=== PATIENT | male | born 1935 | race Asian ===

== ENCOUNTER 2018-08-19 19:03 | Inpatient (IN) | payer MEDICARE, MEDICAID ==
[~2018-08-19] VITALS: Ht 175.3 cm; Wt 62.6 kg
--- NOTE | 2018-08-19 19:12 | NUR ---
TIMOTEO, FROM [facility], SOB, 02 SAT 75 ON RA, 100% ON 15LPM VIA NON REBREATHING, TO ER BED 4, HOOKED TO MONITOR, CHANGED TO GOWN, AWAITING MD MOORE
--- NOTE | 2018-08-19 19:16 | NUR ---
DR STRINGER AT BEDSIDE
--- NOTE | 2018-08-19 19:24 | NUR ---
ONGOING BREATHING TREATMENT
[2018-08-19] MEDS ORDERED: IPRATROPIUM NEB FS 0.5 MG/2.5 ML AMPUL.NEB ONE (19:25)
[2018-08-19] MEDS ORDERED: ALBUTEROL FS 2.5 MG/3 ML VIAL.NEB ONE ×2 (19:25→20:50)
[2018-08-19] MEDS ORDERED: methylPREDNISolone SOD SUCC 125 MG/2ML VIAL IV ONE (19:30)
[2018-08-19] MEDS ORDERED: ALBUTEROL FS 2.5 MG/3 ML VIAL.NEB NEB ONE (19:30)
[2018-08-19] MEDS ORDERED: IPRATROPIUM NEB FS 0.5 MG/2.5 ML AMPUL.NEB NEB ONE (19:30)
[2018-08-19 19:37] LABS: BASOPHILS % (AUTO) 0.5 % (0.0-2.0); EOSINOPHILS % (AUTO) 6.2 % (0.0-6.0); HEMATOCRIT 39 % (39-51); HEMOGLOBIN 13.1 g/dL (13.5-17.5); LYMPHOCYTES # (AUTO) 0.8 /CMM (0.8-4.8); LYMPHOCYTES % (AUTO) 8.9 % (20.0-44.0); MEAN CORPUSCULAR HGB CONC 34 g/dl (31.0-36.0); MEAN CORPUSCULAR VOLUME 98 fL (80-96); MONOCYTES # (AUTO) 0.6 /CMM (0.1-1.30); MONOCYTES % (AUTO) 7.1 % (2.0-12.0); NEUTROPHILS # (AUTO) 6.7 /CMM (1.8-8.9); NEUTROPHILS % (AUTO) 77.3 % (43.0-81.0); PLATELET COUNT (AUTO) 192 /CMM (150-450); RED BLOOD CELL COUNT(AUTO) 3.98 MIL/uL (4.5-6.0); WHITE BLOOD COUNT (AUTO) 8.7 K/uL (4.3-11.0)
[2018-08-19 19:44] LABS: CALCIUM, SERUM 8.4 mg/dL (8.5-10.1); CARBON DIOXIDE 27 mmol/L (21-32); CHLORIDE 115 mmol/L (98-107); CREATININE 1.2 mg/dL (0.6-1.3); GLUCOSE 127 mg/dL (74-106); POTASSIUM 3.6 mmol/L (3.5-5.1); SODIUM SERUM 146 mmol/L (136-145); UREA NITROGEN, BLOOD 22 mg/dL (7-18)
[2018-08-19] MEDS ORDERED: methylPREDNISolone SOD SUCC 125 MG/2ML VIAL ONE (19:55)
[2018-08-19 19:57] LABS: ALANINE AMINOTRANSFERASE 23 U/L (12-78); ALBUMIN 2.1 g/dL (3.4-5.0); ALKALINE PHOSPHATASE 71 U/L (46-116); ASPARTATE AMINOTRANSFERASE 25 U/L (15-37); B-TYPE NATRIURETIC PEPTIDE 431 PG/ML (0-125); BILIRUBIN,DIRECT 0.2 mg/dL (0.0-0.2); BILIRUBIN,TOTAL 0.7 mg/dL (0.2-1.0); TOTAL PROTEIN, SERUM 6.7 g/dL (6.4-8.2)
[2018-08-19] MEDS ORDERED: ALBUTEROL FS 2.5 MG/0.5 ML VIAL.NEB NEB ONE (20:30)
[2018-08-19 20:45] LABS: ABG BASE EXCESS -0.8 mmol/L; ABG OXYGEN SATURATION 87.7 % (92.0-98.5); ABG PCO2 36.9 mmHg (35.0-45.0); ABG PH 7.419 (7.350-7.450); ABG PO2 58.4 mmHg (75.0-100.0); AaDO2 97.7 mmHg; COHb 0.8 % (0.5-1.5); MetHb 0.5 % (0.0-1.5); O2Hb 86.6 % (94.0-97.0); SITE, ABG Right Radial; VENT MODE, BG 2L N/C
--- NOTE | 2018-08-19 20:50 | NUR ---
ONGOING BREATHING TREATMENT
--- NOTE | 2018-08-19 20:50 | NUR ---
FLU SWAB COLLECTED AND SENT TO LAB
[2018-08-19] MEDS ORDERED: PIPERACILLIN /TAZOBACTAM 3.375 G in IV D5W 50 ML IV ONE (21:00)
[2018-08-19] MEDS ORDERED: VANCOMYCIN 1 GM in IV D5W 250 ML IV ONE (21:00)
[2018-08-19] MEDS ORDERED: PIPERACILLIN /TAZOBACTAM 3.375 G VIAL IV ONE (21:13)
[2018-08-19] MEDS ORDERED: VANCOMYCIN 1 GM VIAL ONE (21:13)
--- NOTE | 2018-08-19 21:40 | NUR ---
PT IN BED COMFORTABLE, HOOKED TO VETERINARY RECEPTIONIST, TRYING TO REMOVE NC, PLACED NC BACK AT 5LPM, WILL CONTINUE TO MONITOR.
[2018-08-19] MEDS ORDERED: MAG HYDROX/AL HYDROX/SIMETH 30 ML UDC PO PRN (22:00)
[2018-08-19] MEDS ORDERED: ONDANSETRON HCL/PF 4 MG/2 ML VIAL IVP PRN (22:00)
[2018-08-19] MEDS ORDERED: ZOLPIDEM TARTRATE 5 MG TABLET PO PRN (22:00)
[2018-08-19] MEDS ORDERED: ACETAMINOPHEN 325 MG TABLET PO PRN (22:00)
[2018-08-19] MEDS ORDERED: Z GUARD REMEDY 2 OZ OINT TP PRN (22:00)
[2018-08-19] MEDS ORDERED: HYDROCODONE/APAP 5/325MG 1 EACH TABLET PO PRN (22:00)
[2018-08-19] MEDS ORDERED: MAGNESIUM HYDROXIDE 30 ML UDC PO PRN (22:00)
--- NOTE | 2018-08-19 22:04 | NUR ---
PT IN BED SLEEPING, EASILY AROUSED BY VOICE, CONTINOUS OXYGEN VIA NC AT 5LPM, ONGOING IV ATB VANCOMYCIN 1GM, TOLERATING WELL.
--- NOTE | 2018-08-19 22:24 | NUR ---
REPORT GIVEN TO ABEL VAZQUEZ OF TELE UNIT
--- NOTE | 2018-08-19 22:45 | NUR ---
TELE/RN NOTES NEW ADMITTED PATIENT IS A 83 Y.O MAORI MALE FROM [facility], ARRIVED ON A GURNEY /FROM ER. PATIENT CAN OPEN EYES BUT NON VERBAL, COOPERATIVE TO CARE, REQUIRE OXYGEN VIA NC AT 5L WITH DX OF PNA. PATIENT WITH MULTIPLE SKIN ISSUES, PRESSURE SACRAL REDNESS,ON TELE MONITORING WITH NSR. ANDONIAN WITH ORDERS, TO F/U CONSULT FOR ST SWALLOWING, WOUND CONSULT, PATIETN ON BREATHING TREATMENT DUE TO CONGESTION, UNABLE TO CLEAR SECRETIONS, ARRIVED WITH KEATING, LEFT IV SITE ON HAND GAUGE 20 ABLE TO FLUSH, TO KEEP NPO FOR NOW UNTIL ST EVAL. CONFUSED, APHASIC, WITH HX OF DEMENTIA. MADE AWARE THAT MARLON HAD NGT PRIOR TO HOSPITAL TRANSFER AT [facility], WILL F/U WITH CONSULT. BED LOCKED, REOSITIONED. KEPT SKIN INTACT . NO BELONGINGS.
[2018-08-19 22:47] VITALS: BP 141/80
[2018-08-19 22:50] VITALS: BP 141/80
[2018-08-20] VITALS (7 sets, daily range): BP systolic 134–164; BP diastolic 60–86
[2018-08-20] MEDS ORDERED: PIPERACILLIN /TAZOBACTAM 3.375 G in IV D5W 50 ML IV SCH ×2
[2018-08-20] MEDS: ALBUTEROL FS 2.5 MG/3 ML VIAL.NEB NEB SCH ×8 (02:53→22:50)
[2018-08-20] MEDS: IPRATROPIUM NEB FS 0.5 MG/2.5 ML AMPUL.NEB NEB SCH ×8 (02:53→22:49)
[2018-08-20] MEDS ORDERED: PIPERACILLIN /TAZOBACTAM 3.375 G in IV D5W 50 ML IV ONE (03:00)
[2018-08-20] MEDS ORDERED: PIPERACILLIN /TAZOBACTAM 3.375 G VIAL IV ONE (03:03)
[2018-08-20] MEDS ORDERED: CAPT1TAB5 NG (06:04)
[2018-08-20] MEDS ORDERED: HYDR-4076 NG (06:04)
[2018-08-20] MEDS ORDERED: SIME180C47 NG (06:04)
[2018-08-20] MEDS ORDERED: LEVA0.6320 NEB (06:04)
[2018-08-20] MEDS ORDERED: LORA10TA7 NG (06:04)
[2018-08-20] MEDS ORDERED: ONDA4TAB10 NG (06:04)
[2018-08-20] MEDS ORDERED: TAMS-12 NG (06:04)
[2018-08-20] MEDS ORDERED: LISI-603 NG (06:04)
[2018-08-20] MEDS ORDERED: ALLO100T NG (06:04)
[2018-08-20] MEDS ORDERED: FOLI1TAB16 NG (06:04)
[2018-08-20] MEDS ORDERED: DONE5TAB34 NG (06:04)
[2018-08-20] MEDS ORDERED: AMLO2.5T4 NG (06:04)
[2018-08-20] MEDS ORDERED: FAMO-131 NG (06:04)
[2018-08-20] MEDS ORDERED: METO25TA6 (06:04)
[2018-08-20] MEDS ORDERED: ATOR20TA NG (06:04)
[2018-08-20] MEDS ORDERED: AMYL1CAP58 NG (06:04)
[2018-08-20] MEDS ORDERED: LACT-96 NG (06:04)
[2018-08-20] MEDS ORDERED: ACET325C5 NG (06:04)
[2018-08-20] MEDS ORDERED: MULT1TAB14 NG (06:04)
[2018-08-20] MEDS ORDERED: MAGN400O21 PO (06:04)
[2018-08-20] MEDS ORDERED: ATOR40TA PO (06:04)
[2018-08-20] MEDS ORDERED: CLOP100P MC (06:04)
[2018-08-20] MEDS ORDERED: DOCU100C36 NG (06:04)
[2018-08-20] MEDS ORDERED: CLON0.1T NG (06:04)
[2018-08-20] MEDS ORDERED: PANT40TA4 NG (06:04)
--- NOTE | 2018-08-20 06:52 | NUR ---
321-1 TELE/RN NOTES PATIENT NON VERBAL ,RESPIRATIONS REQUIRE OXYGENATION VIA NC AT 5L, RECEIVED WITH KEATING, NEUROENIC BLADDER DX PER SNF, KEPT SKIN WARM TO TOUCH, REPOSITION FOR COMFORT. BED LOCKED. WILL MONITOR.
[2018-08-20 07:07] LABS: BASOPHILS % (AUTO) 0.2 % (0.0-2.0); HEMATOCRIT 40 % (39-51); HEMOGLOBIN 13.2 g/dL (13.5-17.5); LYMPHOCYTES # (AUTO) 0.3 /CMM (0.8-4.8); LYMPHOCYTES % (AUTO) 6.6 % (20.0-44.0); MEAN CORPUSCULAR HGB CONC 33 g/dl (31.0-36.0); MEAN CORPUSCULAR VOLUME 98 fL (80-96); MONOCYTES # (AUTO) 0.1 /CMM (0.1-1.30); MONOCYTES % (AUTO) 1.6 % (2.0-12.0); NEUTROPHILS # (AUTO) 4.4 /CMM (1.8-8.9); NEUTROPHILS % (AUTO) 91.6 % (43.0-81.0); PLATELET COUNT (AUTO) 178 /CMM (150-450); RED BLOOD CELL COUNT(AUTO) 4.08 MIL/uL (4.5-6.0); WHITE BLOOD COUNT (AUTO) 4.8 K/uL (4.3-11.0)
[2018-08-20 07:22] LABS: CALCIUM, SERUM 8.5 mg/dL (8.5-10.1); CARBON DIOXIDE 25 mmol/L (21-32); CHLORIDE 115 mmol/L (98-107); CREATININE 1.2 mg/dL (0.6-1.3); GLUCOSE 192 mg/dL (74-106); MAGNESIUM 2.4 mg/dL (1.8-2.4); PHOSPHORUS 4.2 mg/dL (2.5-4.9); POTASSIUM 3.7 mmol/L (3.5-5.1); SODIUM SERUM 152 mmol/L (136-145); UREA NITROGEN, BLOOD 24 mg/dL (7-18)
[2018-08-20 07:28] LABS: CHOLESTEROL 123 mg/dL (<200); HDL CHOLESTEROL 23 mg/dL (40-60); LDL 90 mg/dL (0-99); TRIGLYCERIDES 116 mg/dL (30-150)
[2018-08-20] MEDS ORDERED: FEE PK DOSING 1 MIN EA MC ONE (08:04)
--- NOTE | 2018-08-20 08:04 | NUR ---
TELE/RN OPENING NOTE PATIENT IN BED IN STABLE CONDITION. A/O X 1, GREEK SPEAKING AND UNDERSTANDING. NO SIGNS OF ACUTE DISTRESS. NO COMPLAIN OF PAIN OR DISCOMFORT. ON OXYGEN VIA NC 5LPM TOLERATING WELL. ON TELE MONITOR NOTED SINUS RHYTHM OF 99. ALL NEEDS ATTENDED TO. CALL LIGHT WITHIN REACH. WILL CONTINUE TO MONITOR TO ENSURE SAFETY.
[2018-08-20] MEDS: methylPREDNISolone SOD SUCC 125 MG/2ML VIAL IV SCH (08:46)
[2018-08-20] MEDS ORDERED: IV NS 0.9% 500 ML IV ONE (09:00)
--- NOTE | 2018-08-20 10:58 | NUR ---
TELE/RN SPOKE WITH DR SPENCER AND NOTIFIED PATIENT FAIL THE SWALLOW EXAM AND PER [facility] PATIENT WAS ADMITTED TO THEM ON 08/18/18 WITH NG TUBE AT JEVITY 1.5 AT 55 MLS/HR, BUT PATIENT PULLED OUT NG TUBE COUPLE TIMES AND LAST TIME HE PULLED OUT PATIENT STARTING DESATURATION AND WAS TRANSFERRED TO [facility]. PER LICENSED MARINE ENGINEER TJ CONTINUE NPO AND START D5 1/2 NS AT 100MLS/HR, AND WILL SPEAK WITH FAMILY REGARDING PLACEMENT OF PEG TUBE.
--- NOTE | 2018-08-20 11:18 | NUR ---
WOUND CARE CONSULT: PT OFF UNIT AT THIS TIME. DISCUSSED SKIN PROTECTION WITH NURSING STAFF. WILL SEE PT PT CONDITION PERMITS. CURRENT AC SCORE IS 13.
[2018-08-20] MEDS: IV D5/0.45 NACL 1,000 ML IV PRN (12:01)
[2018-08-20] MEDS: PIPERACILLIN /TAZOBACTAM 3.375 G in IV D5W 50 ML IV SCH ×3 (12:01→23:29)
[2018-08-20] MEDS ORDERED: CLONIDINE HCL 0.1 MG TABLET NG SCH (13:30)
[2018-08-20] MEDS ORDERED: hydrALAZINE HCL IV 20 MG VIAL IV PRN (13:30)
--- NOTE | 2018-08-20 13:46 | NUR ---
MS/RN PATIENT NOTED PULLING OUT HIS NASAL CANULA, EXPLAINED RISKS AND BENEFITS STILL CONTINUED TO PULL IT OUT ALSO PULLED OUT HIS LEFT ARM IV LINE. SPOKE WITH DR SPENCER AND MADE AWARE PER DR SPENCER ORDER BILATERAL SOFT WRIST RESTRAINTS SECONDARY TO PULLING OUT MEDICAL TUBES.
[2018-08-20] MEDS: VANCOMYCIN 1 GM in IV D5W 250 ML IV SCH (14:51)
[2018-08-20] MEDS: METOPROLOL TARTRATE 25 MG TABLET NG SCH (16:36)
[2018-08-20] MEDS: DOCUSATE SODIUM 100 MG CAPSULE PO SCH (16:37)
[2018-08-20] MEDS: LIPASE/PROTEASE/AMYLASE 1 EACH CAPSULE.DR NG SCH (16:37)
[2018-08-20] MEDS: hydrALAZINE HCL 25 MG TABLET NG SCH ×2 (16:37→23:37)
--- NOTE | 2018-08-20 16:38 | NUR ---
MS/RN ALL 5PM MEDS AND 6PM MEDS NON ADMINISTERED SECONDARY TO PATIENT NPO AND NO ORDER FOR NG TUBE AT THIS TIME. PER DR SPENCER SHE WILL TALK TO THE DAUGHTER FOR PEG TUBE PLACEMENT.
[2018-08-20] MEDS ORDERED: LEVALBUTEROL HCL NEB SCH (17:00)
[2018-08-20] MEDS ORDERED: CAPTOPRIL NG SCH (18:00)
[2018-08-20] MEDS ORDERED: [UNRECOGNIZED DRUG - OTHER] NG SCH (18:00)
[2018-08-20] MEDS ORDERED: HYDROCHLOROTHIAZIDE NG SCH (18:00)
--- NOTE | 2018-08-20 18:17 | NUR ---
MS/RN CLOSING NOTE PATIENT IN BED IN STABLE CONDITION. A/O X 1, SLURRED SPEECH. NO SIGNS OF ACUTE DISTRESS. NO COMPLAIN OF PAIN OR DISCOMFORT. ON OXYGEN VIA NC AT 5LPM TOLERATING WELL. ON SOFT WRIST BILATERAL RESTRAINTS SECONDARY TO PULLING OUT IV LINE AND NC TUBING. F/C INTACT AND DRAINING WELL. ALL NEEDS ATTENDED TO. CALL LIGHT WITHIN REACH. WILL ENDORSE TO NEXT SHIFT FOR CONTINUITY OF CARE.
--- NOTE | 2018-08-20 19:10 | NUR ---
MS RN OPENING NOTES Received patient in bed, alert, oriented x 1. Breathing even and unlabored. Not in any distress. Patient on supplemental O2 at 5LPM. Peripheral IV infusing at 100mL/hr. Patient has bilateral soft restraints in place. Kilgore catheter in place draining yellow urine. Patient stable as endorsed by the morning RN. Will continue to monitor accordingly
--- NOTE | 2018-08-20 20:43 | NUR ---
RT NOTES 1929 TX ADMINISTERED. NO DISTRESS OR SOB NOTED
[2018-08-20] MEDS ORDERED: [UNRECOGNIZED DRUG - OTHER] NG SCH (21:00)
[2018-08-20] MEDS ORDERED: LACTOSE REDUCED FOOD NG SCH (21:00)
[2018-08-20] MEDS ORDERED: FIBER NG SCH (21:00)
[2018-08-20] MEDS ORDERED: CAPTOPRIL 25 MG TABLET PO SCH (21:00)
--- NOTE | 2018-08-20 23:38 | NUR ---
RN NOTES Apresoline 25mg not given as patient is NPO and no NGT at this time
[2018-08-21] MEDS: IV D5/0.45 NACL 1,000 ML IV PRN ×2 (00:40→17:32)
[2018-08-21] MEDS: ALBUTEROL FS 2.5 MG/3 ML VIAL.NEB NEB SCH ×6 (04:35→23:26)
[2018-08-21] MEDS: IPRATROPIUM NEB FS 0.5 MG/2.5 ML AMPUL.NEB NEB SCH ×6 (04:35→23:26)
[2018-08-21] MEDS: PIPERACILLIN /TAZOBACTAM 3.375 G in IV D5W 50 ML IV SCH ×4 (05:32→23:22)
[2018-08-21 05:55] VITALS: BP 129/60
[2018-08-21] MEDS: hydrALAZINE HCL 25 MG TABLET NG SCH ×3 (05:57→18:13)
--- NOTE | 2018-08-21 06:42 | NUR ---
MS RN CLOSING NOTES Patient resting in bed in stable condition. Alert, oriented x1, slurred speech. Not in any distress. On O2 via NC at 5LPM. Bilateral soft wrist restrains in place as patient is pulling out IV line, meredith cath and taking off NC. Meredith catheter in place, drained 600mL of clear yellow urine. All needs attended to. Call castillo within reach. Bed in low, locked position. Will endorse GERMAINE to oncoming RN
[2018-08-21 07:08] LABS: BASOPHILS % (AUTO) 0.1 % (0.0-2.0); EOSINOPHILS % (AUTO) 0.2 % (0.0-6.0); HEMATOCRIT 35 % (39-51); HEMOGLOBIN 11.8 g/dL (13.5-17.5); LYMPHOCYTES # (AUTO) 0.8 /CMM (0.8-4.8); LYMPHOCYTES % (AUTO) 11.5 % (20.0-44.0); MEAN CORPUSCULAR HGB CONC 34 g/dl (31.0-36.0); MEAN CORPUSCULAR VOLUME 96 fL (80-96); MONOCYTES # (AUTO) 0.6 /CMM (0.1-1.30); MONOCYTES % (AUTO) 8.2 % (2.0-12.0); NEUTROPHILS # (AUTO) 5.5 /CMM (1.8-8.9); PLATELET COUNT (AUTO) 191 /CMM (150-450); RED BLOOD CELL COUNT(AUTO) 3.65 MIL/uL (4.5-6.0); WHITE BLOOD COUNT (AUTO) 6.9 K/uL (4.3-11.0)
[2018-08-21 07:15] LABS: CALCIUM, SERUM 8.1 mg/dL (8.5-10.1); CARBON DIOXIDE 25 mmol/L (21-32); CHLORIDE 114 mmol/L (98-107); CREATININE 1.1 mg/dL (0.6-1.3); GLUCOSE 141 mg/dL (74-106); MAGNESIUM 2.5 mg/dL (1.8-2.4); PHOSPHORUS 3.1 mg/dL (2.5-4.9); POTASSIUM 3.3 mmol/L (3.5-5.1); SODIUM SERUM 148 mmol/L (136-145); UREA NITROGEN, BLOOD 26 mg/dL (7-18)
--- NOTE | 2018-08-21 07:30 | NUR ---
MS RN Opening Notes Patient asleep, resting in bed. Alert and oriented x1. No signs or symptoms of pain at this time. Respirations even and unlabored on 5 L oxygen via nasal cannula, no acute distress noted. Peripheral IV to the right AC 20 gauge, intact, patent and infusing ordered fluids. Kilgore catheter in place, intact, patent and draining urine. Updated patient on current plan of care and safety measures. Safety and fall precautions in place: bed in lowest and locked position, side rails up x2, bed alarm on, call light and personal possessions within reach. Bilateral soft wrist restraints in place due to interference with medical care, restraints checked per protocol. Will continue to monitor and intervene as needed.
[2018-08-21 07:58] VITALS: BP 148/66
[2018-08-21] MEDS: LIPASE/PROTEASE/AMYLASE 1 EACH CAPSULE.DR NG SCH ×3 (08:00→17:32)
[2018-08-21] MEDS: FOLIC ACID 1 MG TABLET NG SCH (09:00)
[2018-08-21] MEDS: ALLOPURINOL 100 MG TABLET NG SCH (09:00)
[2018-08-21] MEDS: LISINOPRIL (20MG) 20 MG TABLET NG SCH (09:00)
[2018-08-21] MEDS: ATORVASTATIN 40 MG TABLET NG SCH (09:00)
[2018-08-21] MEDS: TAMSULOSIN 0.4 MG CAP.SR.24H NG SCH (09:00)
[2018-08-21] MEDS: LORATADINE 10 MG TABLET NG SCH (09:00)
[2018-08-21] MEDS: AMLODIPINE BESYLATE 2.5 MG TABLET NG SCH (09:00)
[2018-08-21] MEDS: HYDROCHLOROTHIAZIDE 25 MG TABLET PO SCH (09:00)
[2018-08-21] MEDS: DOCUSATE SODIUM 100 MG CAPSULE PO SCH ×2 (09:00→16:51)
[2018-08-21] MEDS: METOPROLOL TARTRATE 25 MG TABLET NG SCH ×2 (09:00→16:53)
[2018-08-21] MEDS: MULTIVIT W/MINERALS 1 TAB TABLET NG SCH (09:00)
[2018-08-21] MEDS: DONEPEZIL 5 MG TABLET NG SCH (09:00)
[2018-08-21] MEDS: VANCOMYCIN 1 GM in IV D5W 250 ML IV SCH (09:12)
[2018-08-21] MEDS: methylPREDNISolone SOD SUCC 125 MG/2ML VIAL IV SCH (09:12)
--- NOTE | 2018-08-21 10:15 | NUR ---
MS RN Notes Per Dr. Dennison, patient ordered to be airborne isolation with negative pressure room at this time. Per protocol, isolation procedures in effect. Patient stable, vital signs stable. Endorsed care to TAYLOR Lewis for continuity of care.
--- NOTE | 2018-08-21 10:20 | NUR ---
RN MS NOTES RECEIVED PT FROM JENNIFER VAZQUEZ, PT IS AWAKE, NOT IN DISTRESS, NO SIGN OF PAIN, BILATERAL SOFT WRIST RESTRAINTS ON, AIRBORNE ISOLATION PRECAUTIONS OBSERVED, SEEN BY DR. CAMEJO, ORDERS GIVEN, KEPT CLEAN AND DRY, REPOSITIONED FOR COMFORT.
[2018-08-21] MEDS ORDERED: POTASSIUM CHLORIDE 20 MEQ POWDER PACKET PO SCH (11:30)
[2018-08-21] MEDS ORDERED: POTASSIUM CHLORIDE 20 MEQ POWDER PACKET GT ONE ×2 (11:30→17:00)
[2018-08-21 16:00] VITALS: BP 115/67
[2018-08-21] MEDS: LACTOBACILLUS RHAMNOSUS GG 1 EACH CAP.SPRINK GT SCH (16:51)
[2018-08-21] MEDS: JEVITY 1.2 CAL 1,000 ML BOTTLE GT PRN (16:51)
--- NOTE | 2018-08-21 18:42 | NUR ---
RN MS CLOSING NOTES Patient is now on negative airflow respiratory isolation room. Patient remains on nasal cannula, and is saturating from the low to mid 90's in this setting. Bilateral soft wrists restraints remain in place. no sign of pain noted from patient, safety measures are in place for patient.
--- NOTE | 2018-08-21 19:10 | NUR ---
MS RN OPENING NOTES Received patient sleeping in bed. Breathing even and unlabored. No signs of acute distress noted. NG tube feeding at 20mL/hr, tolerating well. Bilateral soft wrist restraints in place. Isolation precautions maintained. Safety measures in place. Patient stable as endorsed by the morning RN. Will continue to monitor accordingly
[2018-08-21 20:00] VITALS: BP 150/76
--- NOTE | 2018-08-22 | NUR ---
RN NOTES Hydralazine 25mg not given. Patient's is bradycardic. HR on the low 50's
--- NOTE | 2018-08-22 01:00 | NUR ---
RN NOTES Patient's tube feeding increased to 30mL/hr.
[2018-08-22] MEDS: VANCOMYCIN 1 GM in IV D5W 250 ML IV SCH ×2 (03:07→21:35)
[2018-08-22] MEDS: IPRATROPIUM NEB FS 0.5 MG/2.5 ML AMPUL.NEB NEB SCH ×6 (03:23→23:32)
[2018-08-22] MEDS: ALBUTEROL FS 2.5 MG/3 ML VIAL.NEB NEB SCH ×6 (03:23→23:32)
[2018-08-22] MEDS: IV D5/0.45 NACL 1,000 ML IV PRN ×2 (05:19→21:35)
[2018-08-22] MEDS: PIPERACILLIN /TAZOBACTAM 3.375 G in IV D5W 50 ML IV SCH ×3 (05:22→17:19)
[2018-08-22] MEDS: hydrALAZINE HCL 25 MG TABLET NG SCH ×4 (06:03→17:19)
--- NOTE | 2018-08-22 07:26 | NUR ---
MS RN CLOSING NOTES Patient resting in bed, breathing even and unlabored. Not in any distress. On O2 at 3LPM saturating well. Bilateral soft wrist restraints in place. Peripheral IV infusing at 100mL/hr. Kilgore catheter in place- drained 800mL of clear, yellow urine. NG feeding at 30mL/hr, tolerating well. All needs attended and anticipated. Safety measures in place. Bed in low, locked position.Endorsed GERMAINE to morning RN
[2018-08-22 08:00] VITALS: BP 143/66
[2018-08-22 08:10] LABS: CALCIUM, SERUM 8.2 mg/dL (8.5-10.1); CARBON DIOXIDE 29 mmol/L (21-32); CHLORIDE 108 mmol/L (98-107); CREATININE 1.1 mg/dL (0.6-1.3); GLUCOSE 150 mg/dL (74-106); POTASSIUM 3.5 mmol/L (3.5-5.1); SODIUM SERUM 143 mmol/L (136-145); UREA NITROGEN, BLOOD 23 mg/dL (7-18)
[2018-08-22] MEDS: LACTOBACILLUS RHAMNOSUS GG 1 EACH CAP.SPRINK GT SCH ×2 (08:23→16:21)
[2018-08-22] MEDS: LIPASE/PROTEASE/AMYLASE 1 EACH CAPSULE.DR NG SCH ×3 (08:23→17:19)
[2018-08-22] MEDS: AMLODIPINE BESYLATE 2.5 MG TABLET NG SCH (08:23)
[2018-08-22] MEDS: methylPREDNISolone SOD SUCC 125 MG/2ML VIAL IV SCH (08:23)
[2018-08-22] MEDS: LORATADINE 10 MG TABLET NG SCH (08:24)
[2018-08-22] MEDS: DONEPEZIL 5 MG TABLET NG SCH (08:24)
[2018-08-22] MEDS: ALLOPURINOL 100 MG TABLET NG SCH (08:24)
[2018-08-22] MEDS: METOPROLOL TARTRATE 25 MG TABLET NG SCH ×2 (08:24→16:21)
[2018-08-22] MEDS: FOLIC ACID 1 MG TABLET NG SCH (08:24)
[2018-08-22] MEDS: TAMSULOSIN 0.4 MG CAP.SR.24H NG SCH (08:24)
[2018-08-22] MEDS: HYDROCHLOROTHIAZIDE 25 MG TABLET PO SCH (08:24)
[2018-08-22] MEDS: MULTIVIT W/MINERALS 1 TAB TABLET NG SCH (08:24)
[2018-08-22] MEDS: ATORVASTATIN 40 MG TABLET NG SCH (08:24)
[2018-08-22] MEDS: LISINOPRIL (20MG) 20 MG TABLET NG SCH (08:25)
[2018-08-22] MEDS: DOCUSATE SODIUM 100 MG CAPSULE PO SCH ×2 (08:25→16:21)
--- NOTE | 2018-08-22 09:00 | NUR ---
RN MS NOTES Received patient on nasal cannula, no sob or ventilatory distress noted, safety measures in place. Increased patients feeding to 40cc/hour per order. NGT feeding has no obstructions and is able to pass medications without resistance.
--- NOTE | 2018-08-22 09:49 | NUR ---
sputum specimen sent to lab for AFB. charge nurse notified on sputum sample. Addendum: 08/22/18 at 0949 by JOANN SORIANO RT Amended: Links added.
[2018-08-22 15:49] VITALS: BP 133/70
--- NOTE | 2018-08-22 18:49 | NUR ---
RN CLOSING MS NOTES Patient remains resting in bed, no sob or ventilatory distress noted. Kilgore drained 1200 mL. IV infusing at 100 mL per hour. NG feeding is 50 cc/hour since 1700. patient free of pain at this time, call light within reach, safety measures in place. Addendum: 08/22/18 at 1855 by ALEXANDRA BACA RN Per patients daughter Sandie, "Father wants to be DNR/DNI". Patients daughter Sandie will be back tomorrow morning.
--- NOTE | 2018-08-22 19:45 | NUR ---
MS/RN OPENING NOTES PT RECEIVED AWAKE, HOB ELEVATED FOR ASPIRATION PRECAUTIONS. A/OX1 TO NAME ONLY. ON ROOM AIR, BREATHING EVEN AND UNLABORED. NO S/S OF SOB, PAIN OR ACUTE DISTRESS. BILATERAL SOFT WRIST RESTRAINTS OFF AT THIS TIME. PT IS CALM. KEATING IN PLACE AND DRAINING TO GRAVITY. NGT RUNNING JEVITY AT 50CC/HR. IV TO RAC PATENT AND INTACT RUNNING IVF ORDERED. NEED TWO MORE SAMPLES OF SPUTUM FOR AFB. RT MADE AWARE. BED IN LOW/LOCKED POSITION WITH CALL LIGHT IN REACH. BILATERAL UPPER SIDE RAILS IN PLACE. ISOLATION PRECAUTIONS IMPLEMENTED. WILL CONTINUE TO MONITOR
[2018-08-22 20:00] VITALS: BP 121/65
[2018-08-22 20:25] VITALS: BP 121/65
--- NOTE | 2018-08-22 21:30 | NUR ---
MS/RN NOTES IV TO RAC LEAKING. REMOVED AND INSERTED NEW IV TO AMBER #22, GOOD BLOOD RETURN AND FLUSHES WELL.
--- NOTE | 2018-08-22 22:30 | NUR ---
MS/RN NOTES REMINDED RT TO OBTAIN SPUTUM FOR AFB
[2018-08-23] MEDS: hydrALAZINE HCL 25 MG TABLET NG SCH ×5 (00:08→23:47)
[2018-08-23] MEDS: JEVITY 1.2 CAL 1,000 ML BOTTLE GT PRN (00:09)
--- NOTE | 2018-08-23 01:00 | NUR ---
MS/RN NOTES INCREASED NGT FEEDING TO 60CC/HR.
[2018-08-23] MEDS: ALBUTEROL FS 2.5 MG/3 ML VIAL.NEB NEB SCH ×6 (02:55→23:21)
[2018-08-23] MEDS: IPRATROPIUM NEB FS 0.5 MG/2.5 ML AMPUL.NEB NEB SCH ×6 (02:55→23:21)
--- NOTE | 2018-08-23 04:01 | NUR ---
MS/RN NOTES PT FOUND OFF LEFT SOFT WRIST RESTRAINT, NGT PULLED OUT AND ATTEMPTING TO REMOVE KEATING. PT VERY RESTLESS AND AGITATED, ATTEMPTING TO HIT/KICK STAFF. PLACED BACK ON RESTRAINTS. INSERTED NEW NGT TO RIGHT NARE MEASURING AT 65CM. PT TOLERATED WELL. HOB ELEVATED. PT CALM AND COOPERATIVE NOW. ASPIRATED SMALL AMOUNT OF GT FEEDING RESIDUAL. POSITIVE BUBBLING SOUND NOTED ABOVE STOMACH UPON INSERTING 30CC OF AIR. STAT CXR ORDERED FOR PLACEMENT. RADIOLOGY CURRENTLY AT BEDSIDE. WILL RESUME TUBE FEEDING UPON IMAGING RESULTS
--- NOTE | 2018-08-23 05:10 | NUR ---
MS/RN NOTES CALLED RADIOLOGY TO FOLLOW UP ON RESULT OF CXR. NO ANSWER. WILL TRY AGAIN Addendum: 08/23/18 at 0542 by AHRRY FRAIRE RN F/U CALL MADE TO RADIOLOGY. STILL NO ANSWER
[2018-08-23] MEDS: PIPERACILLIN /TAZOBACTAM 3.375 G in IV D5W 50 ML IV SCH ×4 (05:13→12:00)
--- NOTE | 2018-08-23 06:09 | NUR ---
MS/RN NOTES SPOKE TO VALERIA FROM RADIOLOGY. WILL HAVE CXR READ.
[2018-08-23] MEDS ORDERED: JEVITY 1.2 CAL 1,000 ML BOTTLE GT PRN (07:30)
--- NOTE | 2018-08-23 07:32 | NUR ---
MS/RN CLOSING NOTES PT RESTING COMFORTABLY IN BED. ROMANIAN SPEAKING. REMAINS ON 3L O2 VIA NC, BREATHING EVEN AND UNLABORED. NO S/S OF SOB OR PAIN AT THIS TIME. NO FACIAL GRIMACING. IV TO AMBER PATENT AND INTACT RUNNING IVF ORDERED. NGT TO RIGHT LAURELE RESUMED JEVITY, NOW RUNNING AT 60ML/HR WITH NO RESIDUALS NOTED. GOAL OF 65ML/HR X20 HOURS. ON FROM -1999, OFF FROM [id number]. KEATING IN PLACE AND DRAINING TO GRAVITY. BILATERAL SOFT WRIST RESTRAINTS IN PLACE, FREQUENT CHECKS DONE. NEEDS MET. EXTREMITIES WITH GOOD CIRCULATION. TURNED/REPOSITIONED Q2H. HEELS OFFLOADED WITH HEEL PROTECTORS IN PLACE. BED REMAINS IN LOW/LOCKED POSITION WITH CALL LIGHT IN REACH. BILATERAL UPPER SIDE RAILS IN PLACE. HOB ELEVATED, ASPIRATION PRECAUTIONS IMPLEMENTED AND ISOLATION PRECAUTIONS IMPLEMENTED. ENDORSED TO DAY SHIFT RN GERMAINE
--- NOTE | 2018-08-23 07:39 | NUR ---
MS RN OPENING NOTES PT RECEIVED AWAKE IN BED IN NO ACUTE SIGNS OF DISTRESS. HOB ELEVATED. A/OX1 TO NAME ONLY. CONFUSED WITH NO SIGNS OF PAIN NOTED. AIRBORNE PRECAUTIONS MAINTAINED. ON O2 VIA N/C @ 3LPM, BREATHING EVEN AND UNLABORED. BILATERAL SOFT WRIST RESTRAINTS IN PLACE, GOOD PERIPHERAL PULSES NOTED. NGT RUNNING JEVITY AT 60CC/HR AT THIS TIME, TOLERATING WELL. ASPIRATION PRECAUTIONS MAINTAINED. IV ACCESS ON AMBER PATENT AND INTACT RUNNING IVF ORDERED. SPUTUM SPECIMEN #2 COLLECTED JUST NOW FOR AFB, LAB CALLED TO PICK SPECIMEN UP. KEATING IN PLACE AND DRAINING TO GRAVITY. SAFETY MEASURES IN PLACE. BED IN LOW/LOCKED POSITION WITH SR UP X2. CALL LIGHT IN REACH. WILL CONTINUE TO MONITOR
--- NOTE | 2018-08-23 07:45 | NUR ---
SPUTUM COLLECTED FOR 2ND AFB. LAB CALLED FOR IRRIGATION FLUME LAYER
[2018-08-23 08:01] VITALS: BP 121/71
[2018-08-23 08:11] VITALS: BP 122/78
[2018-08-23 08:30] LABS: CALCIUM, SERUM 8.5 mg/dL (8.5-10.1); CARBON DIOXIDE 29 mmol/L (21-32); CHLORIDE 101 mmol/L (98-107); CREATININE 1.2 mg/dL (0.6-1.3); GLUCOSE 127 mg/dL (74-106); POTASSIUM 3.1 mmol/L (3.5-5.1); SODIUM SERUM 139 mmol/L (136-145); UREA NITROGEN, BLOOD 20 mg/dL (7-18)
[2018-08-23] MEDS: LIPASE/PROTEASE/AMYLASE 1 EACH CAPSULE.DR NG SCH ×3 (08:44→18:00)
[2018-08-23] MEDS: LORATADINE 10 MG TABLET NG SCH (08:45)
[2018-08-23] MEDS: LACTOBACILLUS RHAMNOSUS GG 1 EACH CAP.SPRINK GT SCH ×2 (08:45→16:31)
[2018-08-23] MEDS: LISINOPRIL (20MG) 20 MG TABLET NG SCH (08:45)
[2018-08-23] MEDS: AMLODIPINE BESYLATE 2.5 MG TABLET NG SCH (08:45)
[2018-08-23] MEDS: METOPROLOL TARTRATE 25 MG TABLET NG SCH ×2 (08:45→16:31)
[2018-08-23] MEDS: HYDROCHLOROTHIAZIDE 25 MG TABLET PO SCH (08:46)
[2018-08-23] MEDS: TAMSULOSIN 0.4 MG CAP.SR.24H NG SCH (08:46)
[2018-08-23] MEDS: ALLOPURINOL 100 MG TABLET NG SCH (08:46)
[2018-08-23] MEDS: ATORVASTATIN 40 MG TABLET NG SCH (08:46)
[2018-08-23] MEDS: DONEPEZIL 5 MG TABLET NG SCH (08:46)
[2018-08-23] MEDS: MULTIVIT W/MINERALS 1 TAB TABLET NG SCH (08:46)
[2018-08-23] MEDS: FOLIC ACID 1 MG TABLET NG SCH (08:46)
[2018-08-23] MEDS: DOCUSATE SODIUM 100 MG CAPSULE PO SCH ×2 (08:47→16:31)
[2018-08-23] MEDS: methylPREDNISolone SOD SUCC 125 MG/2ML VIAL IV SCH (08:47)
--- NOTE | 2018-08-23 09:43 | NUR ---
RT NOTE PT SPUTUM SAMPLE COLLECTED ORDERED. RN NOTIFIED. SAMPLE PLACED IN APPROPRIATE FRIDGE. PT IN STABLE CONDITION. NO DISTRESS NOTED. Addendum: 08/23/18 at 0945 by SIA DE LA CRUZ RT Amended: Links added.
[2018-08-23] MEDS: POTASSIUM CHLORIDE 20 MEQ POWDER PACKET GT SCH ×2 (11:11→12:01)
--- NOTE | 2018-08-23 12:48 | NUR ---
RN NOTES PATIENT NOTED WITH LOW LEVEL POTASSIUM 3.1 TODAY, REPLACED WITH KLOR CON POWDER PCK 20MEQ X 2 DOSES VIA NGT. WILL CONTINUE TO MONITOR
[2018-08-23] MEDS: IV D5/0.45 NACL 1,000 ML IV PRN (14:39)
[2018-08-23] MEDS: VANCOMYCIN 1 GM in IV D5W 250 ML IV SCH (14:47)
--- NOTE | 2018-08-23 16:04 | NUR ---
RN NOTES PATIENT SEEN AND EVALUATED BY DR GUTIERREZ. NGTUBE REMOVED BY DR GUTIERREZ. CODE STATUS CHANGED TO DNR/DNI. WILL CONTINUE TO MONITOR.
[2018-08-23 16:07] VITALS: BP 124/67
--- NOTE | 2018-08-23 16:32 | NUR ---
RN NOTES ALL MEDICATIONS VIA NG TUBE NOT ADMINISTERED. NG TUBE REMOVED BY MD. PATIENT FOR EVALUATION FOR HOSPICE CARE. WILL CONTINUE TO MONITOR.
--- NOTE | 2018-08-23 18:53 | NUR ---
RN MS CLOSING NOTES PT AWAKE RESTING COMFORTABLY IN BED. NO ACUTE SIGNS OF DISTRESS NOTED. PATIENT IS DNR/DNI. HOB ELEVATED. A/OX1 TO NAME ONLY. CONFUSED WITH NO SIGNS OF PAIN NOTED. AIRBORNE PRECAUTIONS MAINTAINED. O2 SATURATION 93% ON RA, BREATHING EVEN AND UNLABORED. BILATERAL SOFT WRIST RESTRAINTS IN PLACE, GOOD PERIPHERAL PULSES NOTED. IV ACCESS ON AMBER G#22 PATENT AND INTACT RUNNING IVF ORDERED. SPUTUM SPECIMEN #3 NEEDED TO BE COLLECTED. KEATING IN PLACE AND DRAINING TO GRAVITY. SAFETY MEASURES IN PLACE. BED IN LOW/LOCKED POSITION WITH SR UP X2. CALL LIGHT IN REACH. WAS KEPT CLEAN DRY AND COMFORTABLE. REPOSITIONED EVERY 2 HOURS. WILL ENDORSE TO ARTIST'S MANAGER FOR GERMAINE.
--- NOTE | 2018-08-23 19:25 | NUR ---
NT SUCTION DONE AT THIS TIME FOR SPUTUM CULTURE. RN WAS AT BEDSIDE AND LAB WAS NOTIFIED.
--- NOTE | 2018-08-23 19:57 | NUR ---
MS/RN OPENING NOTES PT RECEIVED AWAKE, HOB ELEVATED WITH DAUGHTERS AT BEDSIDE. ABLE TO MAKE NEEDS KNOWN TO DAUGHTERS. ON ROOM AIR, BREATHING EVEN AND UNLABORED. NO FACIAL GRIMACING OR S/S OF PAIN OR ACUTE DISTRESS. IV TO AMBER PATENT AND INTACT RUNNING IVF ORDERED. KEATING IN PLACE AND DRAINING TO GRAVITY. RT AT BEDSIDE AND COLLECTED #3 SPUTUM. SPECIMEN PLACED IN FRIDGE AND LAB CALLED FOR POLISHER BRASS. BED IN LOW/LOCKED POSITION WITH CALL LIGHT IN REACH. SIDE RAILS UP X3 WITH BED ALARM ON FOR SAFETY. DNR/DNI. HOSPICE EVAL DONE TODAY. WILL CONTINUE TO MONITOR AND KEEP COMFORTABLE.
[2018-08-23 20:00] VITALS: BP 117/62
--- NOTE | 2018-08-23 23:48 | NUR ---
MS/RN NOTES NON ADMINISTERED SCHEDULED APRESOLINE DUE TO NGT REMOVED BY MD TODAY. NPO. BP 117/66, HR 75
[2018-08-24] MEDS: IV D5/0.45 NACL 1,000 ML IV PRN (03:03)
[2018-08-24] MEDS: IPRATROPIUM NEB FS 0.5 MG/2.5 ML AMPUL.NEB NEB SCH ×3 (03:23→11:53)
[2018-08-24] MEDS: ALBUTEROL FS 2.5 MG/3 ML VIAL.NEB NEB SCH ×3 (03:23→11:53)
[2018-08-24] MEDS: hydrALAZINE HCL 25 MG TABLET NG SCH ×2 (06:00→11:45)
[2018-08-24 06:45] LABS: BASOPHILS % (AUTO) 0.1 % (0.0-2.0); EOSINOPHILS % (AUTO) 0.7 % (0.0-6.0); HEMATOCRIT 38 % (39-51); LYMPHOCYTES # (AUTO) 1.1 /CMM (0.8-4.8); LYMPHOCYTES % (AUTO) 9.1 % (20.0-44.0); MEAN CORPUSCULAR HGB CONC 34 g/dl (31.0-36.0); MEAN CORPUSCULAR VOLUME 95 fL (80-96); MONOCYTES # (AUTO) 0.6 /CMM (0.1-1.30); MONOCYTES % (AUTO) 5.2 % (2.0-12.0); NEUTROPHILS # (AUTO) 10.6 /CMM (1.8-8.9); NEUTROPHILS % (AUTO) 84.9 % (43.0-81.0); PLATELET COUNT (AUTO) 198 /CMM (150-450); RED BLOOD CELL COUNT(AUTO) 4.01 MIL/uL (4.5-6.0); WHITE BLOOD COUNT (AUTO) 12.5 K/uL (4.3-11.0)
[2018-08-24 06:58] LABS: CALCIUM, SERUM 8.3 mg/dL (8.5-10.1); CARBON DIOXIDE 26 mmol/L (21-32); CHLORIDE 105 mmol/L (98-107); CREATININE 1.1 mg/dL (0.6-1.3); GLUCOSE 125 mg/dL (74-106); MAGNESIUM 2.1 mg/dL (1.8-2.4); PHOSPHORUS 3.7 mg/dL (2.5-4.9); POTASSIUM 3.4 mmol/L (3.5-5.1); SODIUM SERUM 141 mmol/L (136-145); UREA NITROGEN, BLOOD 18 mg/dL (7-18)
--- NOTE | 2018-08-24 07:02 | NUR ---
MS/RN CLOSING NOTES PT RESTING COMFORTABLY IN BED. A/OX2. CURRENTLY ON 1L O2 VIA NC, SPO2 DROPPED TO 86% WHILE ASLEEP, NOW 97%. BREATHING EVEN AND UNLABORED. IN NO ACUTE DISTRESS. IV TO AMBER PATENT AND INTACT RUNNING IVF ORDERED. LEFT SOFT WRIST RESTRAINT IN PLACE FOR ATTEMPTING TO PULL OUT TUBES. RIGHT ARM RESIDUAL WEAKNESS. FREQUENT CIRCULATION CHECKS AND RELEASE OF RESTRAINT PROVIDED. ISOLATION PRECAUTIONS IMPLEMENTED. PT INITIALLY REFUSING ALL TESTING/PROCEDURES, V/S CHECKS, BREATHING TX. TWO DAUGHTERS AT BEDSIDE AND ABLE TO CONVINCE PT TO LET RT OBTAIN 3RD SPUTUM CX DURING BEGINNING OF SHIFT. PT STATES HE DOESNT WANT ANYMORE TESTS AFTER THIS. TURNED/REPOSITIONED Q2H, HEELS OFFLOADED. HOB ELEVATED. BED REMAINS IN LOW/LOCKED POSITION WITH CALL LIGHT IN REACH, SIDE RAILS UPX3 AND BED ALARM ON FOR SAFETY. NO SIGNIFICANT CHANGES OVERNIGHT. ALL NEEDS MET. WILL ENDORSE TO DAY SHIFT RN GERMAINE.
--- NOTE | 2018-08-24 07:40 | NUR ---
RN NOTES PATIENT A/OX1-2, HUNGARIAN SPEAKING, BREATHING EVEN AND UNLABORED, NO SOB NOTED, RESTING COMFORTABLY IN BED. CURRENTLY NPO AT THIS TIME, IVF INFUSING AND TOLERATING WELL, LEFT SOFT WRIST RESTRAINT IN PLACED, ISOLATION PRECAUTION OBSERVED, NEEDS ATTENDED, CALL LIGHT WITHIN REACH, WILL CONTINUE TO MONITOR.
[2018-08-24 08:00] VITALS: BP 120/84
[2018-08-24] MEDS: LIPASE/PROTEASE/AMYLASE 1 EACH CAPSULE.DR NG SCH ×2 (08:00→12:01)
[2018-08-24] MEDS: DONEPEZIL 5 MG TABLET NG SCH (08:41)
[2018-08-24] MEDS: LACTOBACILLUS RHAMNOSUS GG 1 EACH CAP.SPRINK GT SCH (08:41)
[2018-08-24] MEDS: TAMSULOSIN 0.4 MG CAP.SR.24H NG SCH (08:41)
[2018-08-24] MEDS: LORATADINE 10 MG TABLET NG SCH (08:41)
[2018-08-24] MEDS: AMLODIPINE BESYLATE 2.5 MG TABLET NG SCH (08:42)
[2018-08-24] MEDS: FOLIC ACID 1 MG TABLET NG SCH (08:42)
[2018-08-24] MEDS: LISINOPRIL (20MG) 20 MG TABLET NG SCH (08:42)
[2018-08-24] MEDS: ATORVASTATIN 40 MG TABLET NG SCH (08:42)
[2018-08-24] MEDS: METOPROLOL TARTRATE 25 MG TABLET NG SCH (08:42)
[2018-08-24] MEDS: DOCUSATE SODIUM 100 MG CAPSULE PO SCH (08:43)
[2018-08-24] MEDS: MULTIVIT W/MINERALS 1 TAB TABLET NG SCH (08:43)
[2018-08-24] MEDS: ALLOPURINOL 100 MG TABLET NG SCH (08:43)
[2018-08-24] MEDS: HYDROCHLOROTHIAZIDE 25 MG TABLET PO SCH (08:44)
[2018-08-24] MEDS: methylPREDNISolone SOD SUCC 125 MG/2ML VIAL IV SCH (09:21)
[2018-08-24] MEDS: POTASSIUM CL. PREMIX PERIPHER. 50 ML IV SCH ×2 (10:07→11:00)
--- NOTE | 2018-08-24 11:20 | NUR ---
RN NOTES FAMILY PRESENT AT BEDSIDE AND SPOKE TO NURSE AND CHARGE NURSE RE: COUPLE OF REQUESTS FOR FOOD AND TO DISCONTINUE ALL THE MEDS AND FURTHER TESTS. DR. VINAY CAMEJO MADE AWARE AND WILL ADJUST ORDERS.
--- NOTE | 2018-08-24 13:55 | NUR ---
RN NOTES DR. VINAY CAMEJO CAME AND ASSESSED THE PATIENT. RECEIVED ORDERS TO DISCONTINUE ALL THE MEDICATIONS, AND TO START MORPHINE 2MG IV Q2HRS PRN FOR PAIN. ORDER NOTED AND CARRIED OUT. PER MD, OK TO KEEP PATIENT'S OXYGEN FOR COMFORT, PATIENT AGREED.
[2018-08-24] MEDS ORDERED: MORPHINE SULFATE INJ 2 MG/ML DISP.SYRIN IV PRN (14:00)
[2018-08-24 14:11] LABS: *ANCANTIMYELOPEROXIDASE (MPO) <9.0 U/mL (0.0-9.0); *ANCANTIPROTEINASE 3 (PR-3) AB <3.5 U/mL (0.0-3.5)
--- NOTE | 2018-08-24 16:00 | NUR ---
RN NOTES FAMILY REFUSES TO HAVE VITAL SIGNS TAKEN, KEPT PATIENT COMFORTABLE.
--- NOTE | 2018-08-24 17:25 | NUR ---
RN NOTES RECEIVED ORDER FROM DR. CAMEJO TO REMOVE KEATING CATHETER, PER FAMILY'S REQUEST. ORDER CARRIED OUT. KEATING CATHETER REMOVED, PATIENT TOLERATED PROCEDURE WELL. URINE OUTPUT IN THE BAG SHOWS 1600ML. WILL MONITOR FOR URINE OUTPUT.
--- NOTE | 2018-08-24 18:18 | NUR ---
RN NOTES PATIENT A/OX2, BREATHING EVEN AND UNLABORED, NO SOB NOTED, KEPT HOB ELEVATED, NO DISTRESS NOTED, DENIES PAIN AT THIS TIME, KEPT COMFORTABLE, REPOSITIONED, WOUND TREATMENT RENDERED, NEEDS ATTENDED AND MET, CALL LIGHT WITHIN REACH, WILL ENDORSE TO PROCESS OPERATOR FOR GERMAINE.
--- NOTE | 2018-08-24 18:53 | NUR ---
RN NOTES FAMILY WAS FEEDING PATIENT, WHEN PATIENT STARTED COUGHING AND O2 SATURATION DROPPED TO 77%. PATIENT SUCTIONED AND OXYGEN PUT IN PLACED ON 4LPM VIA NC. PATIENT PLACED BACK ON NPO FOR SAFETY DUE TO ASPIRATION. FAMILY MADE AWARE TO KEEP PATIENT ON NPO. CHARGE NURSE MADE AWARE. DR. VINAY CAMEJO MADE AWARE. Addendum: 08/24/18 at 1910 by JEREMY GALLO RN ADDENDUM: O2 SAT STABLE AT 94% WITH 4LPM VIA NC. WILL ENDORSE TO UTILITY GELATIN MAKER FOR GERMAINE.
--- NOTE | 2018-08-24 19:09 | NUR ---
MS RN RECEIVE PT IN BED. 4LPM VIA CT 02 SAT 96%. A/O X2, RESPIRATIONS EVEN AND UNLABORED, NO SOB NOTED, NO DISTRESS, SAFETY MEASURES IN PLACE. WILL CONTINUE TO MONITOR.
[2018-08-24 20:00] VITALS: BP 126/75
--- NOTE | 2018-08-25 06:08 | NUR ---
MS RN ASLEEP AND EASILY AWAKEN, PT ON 3LPM VIA NC 02 SAT 97%. RESPIRATIONS EVEN AND UNLABORED, WOUND TX ORDERED. GOOD SKIN CARE. REPOSITIONED EVERY 2 HOURS. AM CARE PROVIDED. NEEDS ATTENDED AND ANTICIPATED. NURSING CARE RENDERED. KEPT CLEAN AND DRY, COMFORTABLE. SAFETY MEASURES AT ALL TIMES. ENDORSE TO NEXT SHIFT.
--- NOTE | 2018-08-25 07:10 | NUR ---
RN OPENING NOTES PT RESTING IN BED. PT ROMANIAN SPEAKER. NO APPARENT S/S OF PAIN, DISTRESS OR SOB AT THIS TIME. PT HAS A LEFT UPPER ARM #22 IV. PER REPORT FAMILY WANTS PT TO BE ON COMFORT MEASURES, WAITING ON HOSPICE EVAL. SAFETY PRECAUTIONS IN PLACE, BED IN LOWEST LOCKED POSITION, X3 SIDE RAILS UP AND CALL LIGHT WITHIN REACH. WILL CONTINUE TO MONITOR.
[2018-08-25 07:52] LABS: CALCIUM, SERUM 8.3 mg/dL (8.5-10.1); CARBON DIOXIDE 25 mmol/L (21-32); CHLORIDE 106 mmol/L (98-107); CREATININE 1.1 mg/dL (0.6-1.3); GLUCOSE 135 mg/dL (74-106); POTASSIUM 3.6 mmol/L (3.5-5.1); SODIUM SERUM 143 mmol/L (136-145); UREA NITROGEN, BLOOD 27 mg/dL (7-18)
[2018-08-25 08:00] VITALS: BP 142/87
--- NOTE | 2018-08-25 11:00 | NUR ---
RN NOTES EXPLAINED TO THE PATIENT'S DAUGHTERS THAT HE WAS NPO. PT RISK FOR ASPIRATION. EXPLAINED THE RISKS OF PATIENT CONSUMING FOODS. EXPLAINED ASPIRATION TO FAMILY. FAMILY REQUESTED NOT TO HAVE PATIENT SUCTIONED. EXPLAINED THAT IF THE PATIENT IS ASPIRATING IT MAY BECOME NECESSARY. FAMILY VERBALIZED UNDERSTANDING.
--- NOTE | 2018-08-25 13:00 | NUR ---
RN NOTES PATIENT'S GIRLFRIEND AND CAREGIVER, ASKED IF PATIENT COULD HAVE FOODS. EXPLAINED THAT PATIENT IS AT RISK FOR ASPIRATION. WILL CONTINUE TO EDUCATE FAMILY ON PATIENT SAFETY MEASURES.
[2018-08-25 16:00] VITALS: BP 144/84
--- NOTE | 2018-08-25 18:58 | NUR ---
RN CLOSING NOTES PT RESTING IN BED COMFORTABLY. PT ARMENIAN SPEAKER. NO APPARENT S/S OF PAIN, DISTRESS OR SOB AT THIS TIME. PT HAS A LEFT UPPER ARM #22 IV. PER REPORT FAMILY WANTS PT TO BE ON COMFORT MEASURES, WAITING ON HOSPICE EVAL. SAFETY PRECAUTIONS IN PLACE, BED IN LOWEST LOCKED POSITION, X3 SIDE RAILS UP AND CALL LIGHT WITHIN REACH. WILL ENDORSE TO RESIDENTIAL MONITOR NURSE FOR CONTINUITY OF CARE.
--- NOTE | 2018-08-25 19:50 | NUR ---
RN OPENING NOTES RECEIVED REPORT FROM [facility] RN JOSE. FOUND Pt RESTING IN BED COMFORTABLY, EASILY AWAKENED. NO S/S OF ACUTE DISTRESS OR SOB NOTED. RESPIRATIONS EVEN AND UNLABORED. Pt IS A/OX1-2, CONFUSED, YORUBA SPEAKING. IV ACCES ON AMBER #22G, SL. SAFETY MEASURES IN PLACE. BED LOW, LOCKED, HOB ELEVATED, SIDE RAILS UP, CALL LIGHT AND BEDSIDE TABLE WITHIN REACH. BED ALARM ON. WILL CONTINUE TO MONITOR Pt's CONDITION AND SAFETY THROUGHOUT THE NIGHT.
[2018-08-25 20:00] VITALS: BP 123/69
[2018-08-26 06:41] LABS: CALCIUM, SERUM 8.4 mg/dL (8.5-10.1); CARBON DIOXIDE 24 mmol/L (21-32); CHLORIDE 109 mmol/L (98-107); GLUCOSE 145 mg/dL (74-106); POTASSIUM 3.8 mmol/L (3.5-5.1); SODIUM SERUM 145 mmol/L (136-145); UREA NITROGEN, BLOOD 32 mg/dL (7-18)
--- NOTE | 2018-08-26 07:12 | NUR ---
RN CLOSING NOTES NO SIGNIFICANT CHANGES IN Pt's CONDITION. Pt REMAINS STABLE PER BASELINE. NO S/S OF ACUTE DISTRESS OR SOB NOTED DURING THE NIGHT. Pt IS RESTING COMFORTABLY IN BED. RESPIRATIONS EVEN AND UNLABORED. ALL NEEDS MET AND ATTENDED TO. SAFETY MEASURES IN PLACE. WILL ENDORSE TO DAYSHIFT RN FOR Pt's GERMAINE.
[2018-08-26 08:00] VITALS: BP 155/85
--- NOTE | 2018-08-26 08:00 | NUR ---
MS RN NOTES PATIENT IN BED RESTING. PATIENT KYRGYZ SPEAKING. ALERT, ORIENTED X1 PERIPHERAL IV INTACT PATENT. BED IN LOW LOCKED POSITION. CALL LIGHT WITHIN REACH. APPEARS TO COMFORTABLE. WILL CONTINUE TO MONITOR.
[2018-08-26 15:11] LABS: *ANCA ATYPICAL p-ANCA <1:20 titer (Neg:<1:20); *ANCA CYTOPLASMIC (C-ANCA) <1:20 titer (Neg:<1:20); *ANCA PERINUCLEAR (P-ANCA) <1:20 titer (Neg:<1:20)
[2018-08-26 16:00] VITALS: BP 141/74
--- NOTE | 2018-08-26 16:00 | NUR ---
MS RN NOTES PATIENT BEING DISCHARGE TO [facility] WITH HOSPICE. PATIENT ALERT, ORIENTED X1. PATIENTS DAUGHTER HAS BEEN INFORMED OF DISCHARGE PLAN. PATIENT WITH NO BELONGS ONLY PICTURES. REPORT GIVEN TO [facility] RN NAME WILL. PERIPHERAL IV REMOVED WITH MINIMAL BLEEDING. PATIENT TRANSFERRED TO [facility] WITH EMT.
--- NOTE | 2018-08-26 16:34 | NUR ---
PT'S DTR PAIGE HEREDIA INFORMED ABOUT TRANSFER AND PROVIDED WITH FACILITY INFORMATION VIA EMAIL.
== END 2018-08-26 16:15 | DRG 177 ==
LOC: ER 19:07 → TELE1 21:46 → TELE 22:00 → MED 08-20 09:02
PROVIDERS: ADMIT Family Medicine; ATTEND Family Medicine
DX: J69.0 Pneumonitis due to inhalation of food and vomit (principal); N17.0 Acute kidney failure with tubular necrosis; E43 Unspecified severe protein-calorie malnutrition; J96.91 Respiratory failure, unspecified with hypoxia; J44.0 Chronic obstructive pulmonary disease with (acute) lower respiratory infection; J44.1 Chronic obstructive pulmonary disease with (acute) exacerbation; E87.0 Hyperosmolality and hypernatremia; G30.9 Alzheimer's disease, unspecified; F02.80 Dementia in other diseases classified elsewhere, unspecified severity, without behavioral disturbance, psychotic disturbance, mood disturbance, and anxiety; D63.8 Anemia in other chronic diseases classified elsewhere; R73.9 Hyperglycemia, unspecified; E78.5 Hyperlipidemia, unspecified; I10 Essential (primary) hypertension; Z86.73 Personal history of transient ischemic attack (TIA), and cerebral infarction without residual deficits; E86.0 Dehydration; J84.9 Interstitial pulmonary disease, unspecified; L98.9 Disorder of the skin and subcutaneous tissue, unspecified; L89.310 Pressure ulcer of right buttock, unstageable; E87.6 Hypokalemia
CPT/HCPCS: 36415; 36600; 71045-TC; 71250-TC; 80048-TC; 80061-TC; 80076-TC; 80202-TC; 82803-TC; 83520; 83605-TC; 83735-TC; 83880; 84100-TC; 84484-TC; 85025-TC; 86256; 87040-TC; 87081-TC; 87102-TC; 87116; 87206; 87400; 87556; 87899; 92611-TC; 93307-TC; 94640-TC; 94760-TC; 94799-TC; G0378; J2270; J2543; J2930; J3370; J3480; J3490; J7030; J7040; J7060